=== PATIENT | male | born 1940 | race Caucasian/White ===

== ENCOUNTER → 2019-02-19 | Outpatient (CLI) | payer OTHER | END | disposition home or self-care (01) | LOC: SONOGRAMA 10:40 → MRI 10:40 | DX: M25.511 Pain in right shoulder (principal) | CPT/HCPCS: 73221 ==

== ENCOUNTER 2020-08-03 14:09 | Outpatient (CLI) | payer OTHER ==
[~2020-08-03 14:09] MED LIST: ASPIR 8181 MG PO; CILOSTAZOL100 MG PO; ELDEPRYL5 MG PO; NORVASC2.5 M1 PO; PLAVIX75 MG PO; SINEMET 25-1001 EACH PO; TOPROL XL25 M1 PO; TRAMADOL HCL50 MG PO; ZANTAC300 MG PO; ZYRTEC10 MG PO
== END 2020-08-03 14:17 | disposition home or self-care (01) ==
LOC: LAB 14:09
PROVIDERS: ATTEND Internal Medicine Cardiovascular Disease
DX: R31.0 Gross hematuria (principal); I10 Essential (primary) hypertension

== ENCOUNTER 2020-08-03 15:16 | Outpatient (CLI) | payer OTHER | END 2020-08-03 15:22 | disposition home or self-care (01) | LOC: SONOGRAMA 15:16 | PROVIDERS: ATTEND Internal Medicine Cardiovascular Disease | DX: R31.0 Gross hematuria (principal) ==

== ENCOUNTER 2020-08-18 13:00 | Emergency (ER) | payer OTHER ==
[~2020-08-18] VITALS: Ht 177.8 cm; Wt 101.2 kg
[2020-08-18] MEDS ORDERED: BACTRIM DS TAB1 EACH PO (17:48)
== END 2020-08-18 18:13 | disposition home or self-care (01) ==
LOC: ER 13:00
DX: N39.0 Urinary tract infection, site not specified (principal); B96.29 Other Escherichia coli [E. coli] as the cause of diseases classified elsewhere; R31.0 Gross hematuria

== ENCOUNTER 2020-10-12 08:00 | Outpatient (CLI) | payer OTHER ==
[~2020-10-12 08:00] MED LIST changes: +BACTRIM DS TAB1 EACH PO
== END 2020-10-12 08:30 | disposition home or self-care (01) ==
LOC: PPH VACUNA 08:00
DX: Z23 Encounter for immunization (principal)

== ENCOUNTER 2021-04-11 08:32 | Outpatient (CLI) | payer OTHER | END 2021-04-11 09:00 | disposition home or self-care (01) | LOC: MRI 08:32 | DX: G20 Parkinson's disease (principal) | CPT/HCPCS: 70551 ==

== ENCOUNTER 2021-05-12 08:00 | Outpatient (CLI) | payer OTHER | END 2021-05-12 08:30 | disposition home or self-care (01) | LOC: PPH VACUNA 08:00 | PROVIDERS: ATTEND Emergency Medicine Pediatric Emergency Medicine | DX: Z23 Encounter for immunization (principal) ==

== ENCOUNTER 2021-06-10 11:48 | Outpatient (CLI) | payer OTHER | END 2021-06-10 12:09 | disposition home or self-care (01) | LOC: LAB 11:48 | PROVIDERS: ATTEND Physical Medicine & Rehabilitation | DX: D64.9 Anemia, unspecified (principal) ==

== ENCOUNTER 2021-06-14 11:59 | Outpatient (CLI) | payer OTHER | END 2021-06-14 12:48 | disposition home or self-care (01) | LOC: LAB 11:59 | PROVIDERS: ATTEND Urology | DX: R31.0 Gross hematuria (principal) ==

== ENCOUNTER 2021-06-14 12:22 | Outpatient (CLI) | payer OTHER | END 2021-06-14 12:35 | disposition home or self-care (01) | LOC: TOM 12:22 | PROVIDERS: ATTEND Urology | DX: R31.0 Gross hematuria (principal) ==

== ENCOUNTER 2021-07-18 14:56 | Outpatient (CLI) | payer OTHER | END 2021-07-18 15:01 | disposition home or self-care (01) | LOC: LAB 14:56 | PROVIDERS: ATTEND Urology | DX: N30.00 Acute cystitis without hematuria (principal) ==

== ENCOUNTER 2021-07-31 13:16 | Outpatient (CLI) | payer OTHER ==
[2021-08-01] MEDS ORDERED: PLAVIX75 MG PO (12:09)
[2021-08-01] MEDS ORDERED: TOPRO PO (12:09)
== END 2021-07-31 13:25 | disposition home or self-care (01) ==
LOC: RAD 13:16
PROVIDERS: ATTEND Urology
DX: I11.9 Hypertensive heart disease without heart failure (principal)

== ENCOUNTER → 2021-08-01 08:14 | Outpatient (CLI) | payer OTHER ==
[~2021-08-01 08:14] MED LIST changes: +TOPRO PO
== END | disposition home or self-care (01) ==
LOC: LAB 08:14
PROVIDERS: ATTEND Urology
DX: C67.9 Malignant neoplasm of bladder, unspecified (principal); I11.9 Hypertensive heart disease without heart failure

== ENCOUNTER 2021-08-03 13:43 | Outpatient (CLI) | payer OTHER | END 2021-08-03 13:44 | disposition home or self-care (01) | LOC: NUCLEAR 13:43 | PROVIDERS: ATTEND Internal Medicine Cardiovascular Disease | DX: I42.0 Dilated cardiomyopathy (principal) ==

== ENCOUNTER 2021-08-16 05:50 | Day surgery (SDC) | payer OTHER | END 2021-08-16 13:15 | disposition home or self-care (01) | LOC: CIR.AMB | PROVIDERS: ATTEND Urology | DX: C67.9 Malignant neoplasm of bladder, unspecified (principal); C61 Malignant neoplasm of prostate; Z20.822 Contact with and (suspected) exposure to COVID-19; Z95.1 Presence of aortocoronary bypass graft; G20 Parkinson's disease ==

== ENCOUNTER 2021-08-22 11:17 | Outpatient (CLI) | payer OTHER | END 2021-08-22 11:20 | disposition home or self-care (01) | LOC: LAB 11:17 | PROVIDERS: ATTEND Urology | DX: N30.00 Acute cystitis without hematuria (principal) ==

== ENCOUNTER 2021-09-18 11:48 | Outpatient (CLI) | payer OTHER | END 2021-09-18 14:05 | disposition home or self-care (01) | LOC: LAB 11:48 | PROVIDERS: ATTEND Urology | DX: N30.00 Acute cystitis without hematuria (principal) ==

== ENCOUNTER 2021-10-05 13:39 | Outpatient (CLI) | payer OTHER | END 2021-10-05 13:40 | disposition home or self-care (01) | LOC: LAB 13:39 | PROVIDERS: ATTEND Urology | DX: N30.10 Interstitial cystitis (chronic) without hematuria (principal) ==

== ENCOUNTER 2021-10-27 14:47 | Outpatient (CLI) | payer OTHER | END 2021-10-27 14:48 | disposition home or self-care (01) | LOC: LAB 14:47 | PROVIDERS: ATTEND Urology | DX: N30.00 Acute cystitis without hematuria (principal) ==

== ENCOUNTER 2021-11-13 10:34 | Outpatient (CLI) | payer OTHER | END 2021-11-13 10:37 | disposition home or self-care (01) | LOC: LAB 10:34 | PROVIDERS: ATTEND Urology | DX: N30.00 Acute cystitis without hematuria (principal) ==

== ENCOUNTER 2021-11-24 10:01 | Outpatient (CLI) | payer OTHER | END 2021-11-24 10:10 | disposition home or self-care (01) | LOC: LAB 10:01 | PROVIDERS: ATTEND Urology | DX: I11.9 Hypertensive heart disease without heart failure (principal); N30.00 Acute cystitis without hematuria ==

== ENCOUNTER 2022-01-03 10:40 | Outpatient (CLI) | payer OTHER ==
[~2022-01-03 10:40] MED LIST changes: +CARVEDILOL12.5 MG; +NORVASC5 MG PO; +PROSCAR5 MG PO
== END 2022-01-03 10:58 | disposition home or self-care (01) ==
LOC: LAB 10:40
PROVIDERS: ATTEND Urology
DX: N30.00 Acute cystitis without hematuria (principal)

== ENCOUNTER 2022-03-03 13:11 | Outpatient (CLI) | payer OTHER | END 2022-03-03 13:13 | disposition home or self-care (01) | LOC: LAB 13:11 | PROVIDERS: ATTEND Urology | DX: N30.00 Acute cystitis without hematuria (principal) ==

== ENCOUNTER → 2022-03-12 10:43 | Outpatient (CLI) | payer OTHER | END | disposition home or self-care (01) | LOC: LAB 10:43 | PROVIDERS: ATTEND Urology | DX: N30.00 Acute cystitis without hematuria (principal) ==

== ENCOUNTER 2022-03-26 17:09 | Outpatient (CLI) | payer OTHER | END 2022-03-26 17:43 | disposition home or self-care (01) | LOC: LAB 17:09 | PROVIDERS: ATTEND Urology | DX: N20.0 Calculus of kidney (principal) ==